=== PATIENT | male | born 1960 | race Caucasian/White ===

== ENCOUNTER 2019-03-01 05:52 | Inpatient (IN) | payer MEDICARE ==
[2019-03-01] VITALS (10 sets, daily range): BP systolic 122–147; BP diastolic 66–106
[~2019-03-01] VITALS: Ht 172.7 cm; Wt 98.0 kg
[~2019-03-01 05:52] MED LIST: CBD OIL PO; CLON2TAB9 PO; CYCL10TA2 PO; FERR325T14 PO; MORP-16 PO; PANT40TA77 PO; SUCR1TAB PO
[2019-03-01] MEDS ORDERED: BUPIVACAINE-EPI 0.5%-1:200000 MPF 30 ML VIAL. INJ ONE (06:00)
[2019-03-01] MEDS ORDERED: SCOPOLAMINE 1.5MG PATCH. TD ONE (06:30)
[2019-03-01] MEDS ORDERED: MORPHINE SULFATE 2 MG/ML VIAL. IV PRN (07:00)
[2019-03-01] MEDS ORDERED: PROCHLORPERAZINE 10 MG/2 ML VIAL. IV PRN (07:00)
[2019-03-01] MEDS ORDERED: ONDANSETRON PF 4 MG/2 ML VIAL. IV PRN ×2 (07:00→11:30)
[2019-03-01] MEDS ORDERED: IV RINGERS,LACTATED 1000ML 1,000 ML IV SCH (07:00)
[2019-03-01] MEDS ORDERED: LIDOCAINE 1% PF 2 ML VIAL. ID PRN (07:00)
[2019-03-01] MEDS ORDERED: fentaNYL PF VIAL 100 MCG/2 ML VIAL IV PRN (07:00)
[2019-03-01] MEDS ORDERED: SUCCINYLCHOLINE 200 MG/10 ML VIAL. ONE (07:04)
[2019-03-01] MEDS ORDERED: ROCURONIUM 50 MG/5 ML VIAL. ONE ×2 (07:04→09:15)
[2019-03-01] MEDS ORDERED: PROPOFOL 20 ML IV ONE (07:06)
[2019-03-01] MEDS ORDERED: LIDOCAINE 2% PF 5 ML VIAL. ONE (07:06)
[2019-03-01] MEDS ORDERED: ONDANSETRON PF 4 MG/2 ML VIAL. ONE ×2 (07:07)
[2019-03-01] MEDS ORDERED: SURGICEL HEMOSTAT 4X8 EACH. ONE ×2 (07:09)
[2019-03-01] MEDS ORDERED: DEXAMETHASONE SOD PHOS 20 MG/5 ML VIAL. ONE (07:10)
[2019-03-01] MEDS ORDERED: fentaNYL PF VIAL 250 MCG/5 ML VIAL ONE (07:24)
[2019-03-01] MEDS ORDERED: MIDAZOLAM HCL/PF 2 MG/2 ML VIAL. ONE (07:24)
[2019-03-01] MEDS ORDERED: ceFAZolin 2GM PREMIX 2 GM/50 ML BAG IV ONE (08:00)
[2019-03-01] MEDS ORDERED: BUPIVACAINE MPF 0.5% 30 ML VIAL. ONE (08:11)
[2019-03-01] MEDS ORDERED: PHENYLEPHRINE in 0.9% NACL PF 1 MG/10 ML SYRINGE. IV ONE (08:55)
[2019-03-01] MEDS ORDERED: SCOPOLAMINE 1.5MG PATCH. TD SCH (09:00)
[2019-03-01] MEDS ORDERED: GLYCOPYRROLATE 1 MG/5 ML VIAL. ONE (10:53)
[2019-03-01] MEDS ORDERED: NEOSTIGMINE METHYLSULFATE 5 MG/5 ML SYRINGE. ONE (10:53)
[2019-03-01] MEDS ORDERED: SEVOFLURANE > 120 MINUTES. IH ONE (11:17)
[2019-03-01] MEDS ORDERED: IV NORMAL SALINE 1000ML BAG 1,000 ML IV SCH (11:18)
--- NOTE | 2019-03-01 11:18 | PDOC4 ---
Operative Note Operative Note Operative Note Preoperative Diagnosis: Large hiatal hernia with gastroesophageal reflux disease Postoperative Diagnosis: Same Procedure: Laparoscopic repair of large hiatal hernia with Elias fundoplication Surgeon: Erwin Stiles.: Dr. Contreras Anesthesia: Gen. Estimated Blood Loss: 25 mL Specimen: Hernia sac to pathology Drains: None Complications: None Indications: The patient is a 58-year-old male who is referred following a GI evaluation which identified a very large hiatal hernia with much of the stomach in the chest. He was referred for surgical repair. The risks of surgery were discussed which include bleeding, infection, recurrent herniation, gastric or esophageal perforation, visceral injury, recurrent reflux, gas bloat syndrome, dysphasia, potential need for additional surgeries or procedures. He understands and would like to proceed. Description: The patient was taken to the operating room and placed supine on the operating table. General anesthesia was performed. The patient was then placed in lithotomy. The abdomen was prepped with ChloraPrep and draped in a standard surgical fashion. A small incision was made superior to and to the patient's left of the umbilicus through which a visualized 5 mm trocar was inserted. A pneumoperitoneum was then created and the laparoscope was introduced. In the right lateral abdomen a 12 mm trocar was inserted through which a soft fan retractor was used to elevate the left lobe of the liver. In the right upper quadrant a 5 mm trocar was inserted. In the left upper quadrant an 11 mm trocar was inserted while in the left lateral abdomen a 5 mm trocar was inserted. Attention was then directed to the diaphragmatic hiatus. As expected there was a large hiatal hernia defect with virtually much of the stomach present in the chest. A large amount of stomach and omentum was pulled out of the chest and able to be reduced. We then began mobilizing the entire hernia sac within the mediastinum. We started this on the right side and began freeing up the sac from the right syd. The Harmonic scalpel assisted for much of this dissection. We continued mobilizing the sac superiorly well into the mediastinum. We continued this dissection anteriorly freeing up the sac and its attachments in this location. The dissection then continued along the left syd and the sac and attachments were mobilized here as well. Due to the large size and redundancy of the sac considerable time was required in freeing this out of the mediastinum. Portions of the redundant sac were also fully excised and sent off to pathology as a specimen. The gastrocolic omentum was then opened with the Harmonic scalpel in the upper portion of the greater curvature. We the n freed up the upper part of the greater curvature and fundus using the harmonic scalpel. Large blood vessels were doubly clipped and divided. The dissection continued all the way back up to the left syd and any remaining splenic attachments were also mobilized. At this point the esophagus was readily visualized and we were able to free up the area around his gastroesophageal junction. A [place] drain was then placed around the esophagus at the GE junction and clips were applied holding the [place] in place. With retraction on the Avel we were able to continue freeing up any remaining sac attachments particularly in the posterior location. To assist with this in other 5 mm port was placed in the abdomen which aided in traction and visualization. At this point the GE junction was well within the abdominal cavity. The left and right syd were then reapproximated with interrupted 2-0 silk sutures using the Endo Stitch device. Stitches were applied both anteriorly and posteriorly allowing for closure of the hernia defect. We elected to reinforce the closure with a Phasix ST mesh patch. The mesh was then introduced and laid up against the diaphragm and around the esophagus. Initial fixation sutures were placed at the superior corners of the mesh using 2-0 silk. The entire mesh was then fixed to the diaphragm using the Tisseel fibrin glue. The fundus was then wrapped around in a 360� fashion creating the fundoplication. A shoeshine maneuver was used to ensure no twists or kinks. 2 initial sutures were placed securing the fundic lips together which included a portion of the anterior esophagus near the GE junction. An additional suture was then placed inferiorly completing the fundoplication. At this point hemostasis was good, the hernia was well repaired with good coverage from the mesh, and the fundoplication was intact with a nice orientation. The 11 and 12 mm trochars were then removed and the fascia closed with 0 Vicryl using an Endo Close. The remaining ports were removed and the pneumoperitoneum was relieved. Skin at all incisions was closed with 4-0 Monocryl. Steri-Strips and dressings were applied. The patient tolerated the procedure well. SHANNAN NYE MD Mar 01, 2019 11:18
[2019-03-01] MEDS ORDERED: 0.9 % SODIUM CHLORIDE 10 ML DISP.SYRIN. IV PRN (11:30)
[2019-03-01] MEDS ORDERED: HYDROmorphone 2 MG/ML VIAL IV PRN (11:30)
[2019-03-01] MEDS ORDERED: NALOXONE 0.4 MG/ML VIAL. IV PRN (11:30)
[2019-03-01] MEDS: fentaNYL PF VIAL 100 MCG/2 ML VIAL IV PRN ×5 (11:46→13:44)
[2019-03-01] MEDS: HYDROmorphone 2 MG/ML VIAL IV PRN ×7 (11:48→21:23)
[2019-03-01] MEDS: IV 1/2 NORMAL SALINE 1,000 ML IV SCH ×2 (13:13→23:24)
[2019-03-01] MEDS: MORPHINE ER 30 MG TABLET.ER PO SCH (18:01)
[2019-03-01] MEDS ORDERED: SUCRALFATE 1 GM TABLET. PO SCH (21:00)
[2019-03-01] MEDS ORDERED: PANTOPRAZOLE 40 MG TABLET.DR. PO SCH (21:00)
[2019-03-02 03:00] VITALS: BP 154/102
[2019-03-02 03:43] VITALS: BP 152/95
--- NOTE | 2019-03-02 03:46 | NUR ---
Medication Administration: RN administered the 2100 dose of Carafate at 0300 due to patient stating he takes it at that time at home.
[2019-03-02] MEDS: HYDROmorphone 2 MG/ML VIAL IV PRN ×2 (04:27→08:58)
[2019-03-02] MEDS: MORPHINE ER 30 MG TABLET.ER PO SCH (06:27)
[2019-03-02] MEDS ORDERED: FERROUS SULFATE 325 MG TABLET. PO SCH ×2 (06:45→09:00)
[2019-03-02 07:00] VITALS: BP 146/95
[2019-03-02] MEDS: IV 1/2 NORMAL SALINE 1,000 ML IV SCH (07:18)
[2019-03-02 07:32] LABS: CALCIUM 8.9 mg/dL (8.5-10.1); CREATININE 0.9 mg/dL (0.7-1.3); GFR 86.7
[2019-03-02] MEDS ORDERED: PANTOPRAZOLE 40 MG TABLET.DR. PO SCH ×2 (09:00)
[2019-03-02 11:00] VITALS: BP 142/89
--- NOTE | 2019-03-02 11:14 | PDOC ---
SURGICAL PROGRESS NOTE Subjective Patient doing quite well tolerating his by mouth meds does complain of some abdominal soreness Vital Signs Vital Signs Date Time Temp Pulse Resp B/P (MAP) Pulse Ox O2 Delivery O2 Flow Rate FiO2 03/02/19 09:59 18 Room Air 03/02/19 07:00 98.5 95 146/95 (112) 92 98.5 03/02/19 06:31 2.0 I&O Intake and Output 03/02/19 06:59 Intake Total 2650 ml Output Total 1725 ml Balance 925 ml Intake IV Total 2650 ml Output Urine Total 1700 ml Estimated Blood Loss 25 ml PATIENT HAS A RHOADES: No General: Alert, Oriented X3, Cooperative, mild distress Abdomen: Normal bowel sounds, Soft, Other (mild incisional tenderness wounds clean dry and intact) Labs Laboratory Tests Test 03/02/19 05:50 Sodium Level 143 mmol/L (136-145) Potassium Level 4.0 mmol/L (3.5-5.1) Chloride Level 103 mmol/L (98-107) Carbon Dioxide Level 31 mmol/L (21-32) Anion Gap 9 (6-14) Blood Urea Nitrogen 9 mg/dL (8-26) Creatinine 0.9 mg/dL (0.7-1.3) Estimated GFR (Cockcroft-Gault) 86.7 Glucose Level 89 mg/dL (70-99) Calcium Level 8.9 mg/dL (8.5-10.1) Laboratory Tests Test 03/02/19 05:50 Sodium Level 143 mmol/L (136-145) Potassium Level 4.0 mmol/L (3.5-5.1) Chloride Level 103 mmol/L (98-107) Carbon Dioxide Level 31 mmol/L (21-32) Anion Gap 9 (6-14) Blood Urea Nitrogen 9 mg/dL (8-26) Creatinine 0.9 mg/dL (0.7-1.3) Estimated GFR (Cockcroft-Gault) 86.7 Glucose Level 89 mg/dL (70-99) Calcium Level 8.9 mg/dL (8.5-10.1) Assessment/Plan That is post-Elias fundoplication laparoscopic doing well will advance diet changed to by mouth meds LUPIS ALANIZ MD Mar 02, 2019 11:14
[2019-03-02] MEDS ORDERED: oxyCODONE/APAP 5/325 1 TAB TABLET PO PRN (11:15)
[2019-03-02] MEDS: oxyCODONE/APAP 5/325 1 TAB TABLET PO PRN ×2 (11:42→15:46)
--- NOTE | 2019-03-02 12:22 | NUR ---
SS following for discharge planning. SS reviewed pt chart. Pt is from home with spouse and is currently on room air. No discharge needs noted at this time. SS will continue to follow for discharge planning.
--- NOTE | 2019-03-02 12:35 | DISCH ---
DISCHARGE INSTRUCTIONS Condition on Discharge Condition on Discharge: Stable Activity After Discharge Activity Instructions for Disc: Activity as tolerated Other activity instructions: no lifting more than 20 pounds for 4 weeks Diet after Discharge Diet after Discharge: Level III Dysph, Chopped Wound Incision Care Other wound/incision instructi: May shower in 24 hours Contacting the after DC Call your doctor for: If your condition worsens Follow-Up Follow up with: Dr. Hood in 2 weeks LUPIS ALANIZ MD Mar 02, 2019 12:35
[2019-03-02 15:00] VITALS: BP 135/89
[2019-03-02] MEDS ORDERED: SUCRALFATE 1 GM TABLET. PO SCH (15:00)
--- NOTE | 2019-03-02 16:19 | NUR ---
Discharge instructions and belongings reviewed with patient, verbalized understanding. Patient was escorted out via wheelchair by Erendira DESAI accompanied by his .
--- NOTE | 2019-03-05 14:07 | PATHOLOGY ---
[facility] Accession Number: [id number] . 01 Material submitted: . hernia - HIATAL HERNIA SAC . 01 Clinical history: . Hiatal hernia with gastroesophageal reflux . 02 Diagnosis: Segments of focal mesothelial-lined fibromembranous and fibroadipose tissue, laparoscopic hiatal hernia repair: - Hernia sac. - Three lymph nodes identified showing no significant pathologic abnormalities. (JPM:melanie; 03/05/2019) QMS/03/05/2019 . 02 Electronically signed: . Rodrigo Rosario MD, Pathologist NPI- [id number] . 01 Gross description: . Received in formalin labeled "Brown, Jey, hiatal hernia sac," are 2 segments of pink-purple, membranous tissue with attached yellow adipose tissue measuring 8.0 x 4.0 x 1.1 and 8.8 x 3.6 x 0.8 cm. The tissue submitted representatively in cassette A1. (TSD; 03/01/2019) TOB/TOB . 02 Pathologist provided ICD-10: K44.9 . 02 CPT . 205649 Specimen Comment: A courtesy copy of this report has been sent to Specimen Comment: [phone], . Specimen Comment: Report sent to DR NYE / DR ÁLVAREZ Performed at: 01 [facility] [address], [place], [place] [id number] MD Darin Castillo MD Phone: [phone] Performed at: 02 [facility] [address] [place], [place] [id number] MD Rodrigo Rosario MD Phone: [phone]
== END 2019-03-02 16:24 | disposition home or self-care (01) | DRG 328 ==
LOC: SURG 05:52 → 4 NORTH 11:00
PROVIDERS: ADMIT Surgery; ATTEND Surgery
PROC: 0BUT4JZ Supplement Diaphragm with Synthetic Substitute, Percutaneous Endoscopic Approach (ICD-10-PCS; 2019-03-01)
PROC: 0DV44ZZ Restriction of Esophagogastric Junction, Percutaneous Endoscopic Approach (ICD-10-PCS; principal; 2019-03-01 07:30)
DX: K21.9 Gastro-esophageal reflux disease without esophagitis (principal); K44.9 Diaphragmatic hernia without obstruction or gangrene
CPT/HCPCS: 36415; 80048; A7015; C1781; J0330; J0696; J0780; J1100; J1170; J2001; J2250; J2370; J2405; J2704; J2710; J3010; J3490; J7030; J7120; G0378

== ENCOUNTER → 2019-08-06 | Outpatient (CLI) | payer BC ==
[2019-08-06 09:43] LABS: BASO # 0.1 x10^3/uL (0.0-0.2); BASO % 1 % (0-3); EOS # 0.1 x10^3/uL (0.0-0.7); EOS % 2 % (0-3); HEMATOCRIT 52.6 % (39.0-53.0); HEMOGLOBIN 17.8 g/dL (13.0-17.5); LYMPH # 1.8 x10^3/uL (1.0-4.8); LYMPH % 25 % (24-48); MEAN CORPUSCULAR HEMOGLOBIN 30 pg (25-35); MEAN CORPUSCULAR HGB CONC 34 g/dL (31-37); MEAN CORPUSCULAR VOLUME 89 fL (79-100); MONO # 0.8 x10^3/uL (0.0-1.1); MONO % 11 % (0-9); NEUT # 4.4 x10^3/uL (1.8-7.7); NEUT % 61 % (31-73); PLATELET COUNT 240 x10^3/uL (140-400); RED CELL DISTRIBUTION WIDTH 13.8 % (11.5-14.5); WHITE BLOOD COUNT 7.2 x10^3/uL (4.0-11.0)
[2019-08-06 10:02] LABS: PROTHROMBIN TIME PATIENT 12.7 SEC (11.7-14.0)
[2019-08-06 10:19] LABS: ALBUMIN 3.7 g/dL (3.4-5.0); CALCIUM 9.2 mg/dL (8.5-10.1); CREATININE 0.9 mg/dL (0.7-1.3); GFR 86.7; POTASSIUM 4.3 mmol/L (3.5-5.1)
--- NOTE | 2019-08-06 13:03 | EKG ---
[facility] [address] [place] [address] Test Date: 2019-08-06 Test Time: 12:56:14 Pat Name: TYLER JENSEN Department: Room: Gender: M Manager [employer] Management: SABINE : 1960 Requested By: CHASTITY WALTERS Order Number: [id number] Reading MD: Measurements Intervals [place] Rate: 90 P: 30 DE: 146 QRS: -18 QRSD: 86 T: 14 QT: 364 QTc: 449 Interpretive Statements SINUS RHYTHM LEFTWARD AXIS OTHERWISE NORMAL ECG RI6.02 No previous ECG available for comparison
--- NOTE | 2019-08-06 15:52 | RAD ---
AP and Lateral Views of the Chest 08/06/2019 9:04 AM Indication: Preoperative Comparison: None Findings: No pneumothorax or pleural effusion is seen. Small calcified granuloma noted in the left upper lung. Heart size is within normal limits. Mild interstitial coarsening is seen partially related to hypoventilatory effect. No evidence of acute osseous abnormality is identified. Degenerative changes of the thoracic spine noted. IMPRESSION: 1 .No evidence of acute cardiopulmonary process 2. Mild nonspecific interstitial coarsening. Electronically signed by: Angelo Rosenberg MD (08/06/2019 3:09 PM) [id number]
[2019-08-06 23:08] LABS: HEMOGLOBIN A1C 5.6 % (4.8-5.6)
== END | disposition home or self-care (01) ==
LOC: SURGPAT 13:11
PROVIDERS: ATTEND Orthopaedic Surgery
DX: Z01.818 Encounter for other preprocedural examination (principal); M17.11 Unilateral primary osteoarthritis, right knee; J84.10 Pulmonary fibrosis, unspecified; Z88.8 Allergy status to other drugs, medicaments and biological substances
CPT/HCPCS: 36415; 71046; 80048; 82040; 82306; 83036; 85025; 85610; 85651; 85730; 87641; 93005

== ENCOUNTER 2019-09-02 12:25 | Emergency (ER) | payer BC ==
[~2019-09-02] VITALS: Ht 170.2 cm; Wt 97.7 kg
[~2019-09-02 12:25] MED LIST changes: +ASPI325T11 PO; +OXYC1TAB15 PO
--- NOTE | 2019-09-02 12:57 | PHYS DOC ---
Past Medical History Past Medical History: Arthritis, GERD Additional Past Medical Histor: chroinc pain Additional Past Surgical Histo: Knee replacement Smoking Status: Former Smoker Adult General Chief Complaint Chief Complaint: POST-OP PROBLEM HPI HPI Patient is a 58-year-old male who presents to the emergency department for evaluation. He underwent a right total knee replacement this past Tuesday, and states he has had some increasing swelling, and some mild pain increasing in the area of his knee. He has had a low-grade temperature at home, although he is afebrile here. They contacted the on-call orthopedic physician who was concerned that the patient might be developing a DVT and sent him to the emergen cy department. The patient is on aspirin prophylaxis. He has not had any nausea, vomiting, chest pain, or shortness of breath. There are no alleviating or exacerbating factors to his symptoms otherwise. He is able to flex and extend his knee. Relevant notes from his recent hospital stay have been reviewed. Review of Systems Review of Systems Constitutional: Denies lethargy or chills [] Eyes: Denies change in visual acuity, redness, or eye pain [] HENT: Denies nasal congestion or sore throat [] Respiratory: Denies cough or shortness of breath [] Cardiovascular: The patient denies any shortness of breath, chest pain, palpitations, or orthopnea [] GI: Denies abdominal pain, nausea, vomiting, bloody stools or diarrhea [] : Denies dysuria or hematuria [] Musculoskeletal: Denies back pain or joint pain, other than pain in his right knee [] Integument: Denies rash or skin lesions, other than some erythema in the area of his right knee wound, where there is a dressing in place. [] Neurologic: Denies headache, focal weakness or sensory changes [] Endocrine: Denies polyuria or polydipsia [] All other systems were reviewed and found to be within normal limits, except as documented in this note. Current Medications Current Medications Current Medications Medications (Trade) Dose Ordered Sig/Shani Start Time Stop Time Status Last Admin Dose Admin Morphine Sulfate (Ms Contin) 15 mg BID 09/02/19 15:15 09/02/19 15:08 15 MG Oxycodone/ Acetaminophen (Percocet 5/325) 2 tab 1X ONCE 09/02/19 14:30 09/02/19 14:41 DC 09/02/19 14:54 2 TAB Allergies Allergies Allergies Coded Allergies Type Severity Reaction Last Updated Verified morphine Adverse Reaction Mild MORPHINE IV ONLY - VOMITING (PO OK) 08/28/19 Yes Physical Exam Physical Exam PHYSICAL EXAM: CONSTITUTIONAL: Well developed, well nourished HEAD: normocephalic, atraumatic EENT: PERRL, EOMI. Conjunctivae normal color, sclerae non-icteric; moist mucous membranes. NECK: Supple, non-tender; no meningismus. LUNGS: Lungs CTA, breathing even and unlabored. Normal air movement. HEART: Regular rate and rhythm, no murmur CHEST: No deformity; non-tender ABDOMEN: The abdomen is soft, and non-tender, no masses or bruits. EXTREM: Normal ROM; no deformity, no calf tenderness. Normal pulses palpable in all extremities. There is no pedal edema. There is mild edema noted to the right lower extremity, consistent with recent postop TKA, without significant or unexpected edema. There is a focal area of hyperemia, with some mild warmth and early blistering on the medial aspect of the right knee, which appears more consistent with an allergic reaction to the skin, as opposed to a true developin g cellulitis. There is mild diffuse tenderness to palpation in the area of the right knee, without significant restriction in range of motion, or pain. The remainder the extremities are unremarkable. Distal PMS is normal. SKIN: No rash; no diaphoresis NEURO: Alert; normal speech and cognition; CN's grossly intact; strength grossly intact without focal deficit. BACK: No CVA TTP. Current Patient Data Vital Signs Vital Signs Date Time Temp Pulse Resp B/P (MAP) Pulse Ox O2 Delivery O2 Flow Rate FiO2 09/02/19 12:48 98.4 103 20 134/84 (101) 95 Room Air 98.4 Lab Values Laboratory Tests Test 09/02/19 12:50 White Blood Count 10.0 x10^3/uL (4.0-11.0) Red Blood Count 4.91 x10^6/uL (4.30-5.70) Hemoglobin 15.0 g/dL (13.0-17.5) Hematocrit 43.4 % (39.0-53.0) Mean Corpuscular Volume 88 fL (79-100) Mean Corpuscular Hemoglobin 31 pg (25-35) Mean Corpuscular Hemoglobin Concent 35 g/dL (31-37) Red Cell Distribution Width 13.5 % (11.5-14.5) Platelet Count 298 x10^3/uL (140-400) Neutrophils (%) (Auto) 65 % (31-73) Lymphocytes (%) (Auto) 22 % (24-48) L Monocytes (%) (Auto) 11 % (0-9) H Eosinophils (%) (Auto) 2 % (0-3) Basophils (%) (Auto) 1 % (0-3) Neutrophils # (Auto) 6.4 x10^3/uL (1.8-7.7) Lymphocytes # (Auto) 2.2 x10^3/uL (1.0-4.8) Monocytes # (Auto) 1.1 x10^3/uL (0.0-1.1) Eosinophils # (Auto) 0.2 x10^3/uL (0.0-0.7) Basophils # (Auto) 0.1 x10^3/uL (0.0-0.2) Erythrocyte Sedimentation Rate 35 (0-15) H Sodium Level 140 mmol/L (136-145) Potassium Level 3.9 mmol/L (3.5-5.1) Chloride Level 102 mmol/L (98-107) Carbon Dioxide Level 26 mmol/L (21-32) Anion Gap 12 (6-14) Blood Urea Nitrogen 15 mg/dL (8-26) Creatinine 1.0 mg/dL (0.7-1.3) Estimated GFR (Cockcroft-Gault) 76.7 Glucose Level 134 mg/dL (70-99) H Lactic Acid Level 1.6 mmol/L (0.4-2.0) Calcium Level 8.8 mg/dL (8.5-10.1) C-Reactive Protein, Quantitative 147.8 mg/L (0-3.3) H Laboratory Tests 09/02/19 12:50 Laboratory Tests 09/02/19 12:50 EKG EKG [] Radiology/Procedures Radiology/Procedures PROCEDURE: VENOUS LOWER EXTREMITY RIGHT Right Leg Venous Doppler Ultrasound, 09/02/2019 Indication: Postop pain and swelling status post total knee arthroplasty on 08/28/2019 Comparison: None available Procedure: Real-time grayscale, color flow color duplex Doppler and spectral analysis are obtained with and without compression in the area of the common femoral vein, superficial femoral vein - femoral vein junction, main femoral vein (superficial femoral vein) and popliteal vein. Veins of the proximal calf are also imaged. Findings: There is normal duplex flow, color flow and compressibility of all visualized vein segments. No evidence of deep venous thrombus is present. Mildly enlarged 3.1 cm right groin lymph node, perhaps reactive. Diffuse soft tissue swelling is seen in the right elbow findings and knee area Impression: No convincing evidence of DVT noted. Soft tissue swelling is identified. [] Course & Med Decision Making Course & Med Decision Making Pertinent Labs and Imaging studies reviewed. (See chart for details) [] 3:20 PM: Patient remains stable. I discussed test results, the need for close follow-up, and return precautions. I had earlier spoken with Dr. Najera, we did not want the patient placed on antibiotics at this time, without convincing evidence of infection, which is not present, and stressed importance of close outpatient follow-up in the office. Return precautions were discussed in detail. Dragon Disclaimer Dragon Disclaimer This electronic medical record was generated, in whole or in part, using a voice recognition dictation system. Departure Departure Impression: Primary Impression: Postoperative pain of knee Disposition: 01 HOME, SELF-CARE Condition: STABLE Referrals: NILTON ÁLVAREZ (PCP) Patient Instructions: Pain Relief Preoperatively and Postoperatively, Total Knee Replacement, Care After Additional Instructions: Follow-up with your orthopedic surgeon in 1 to 2 days for a wound recheck. Tylenol as needed for pain. If increasing pain develops, return to medical care for further evaluation. RIKKI ALTAMIRANO MD Sep 02, 2019 12:57
[2019-09-02 13:03] LABS: BASO # 0.1 x10^3/uL (0.0-0.2); BASO % 1 % (0-3); EOS # 0.2 x10^3/uL (0.0-0.7); EOS % 2 % (0-3); HEMATOCRIT 43.4 % (39.0-53.0); LYMPH # 2.2 x10^3/uL (1.0-4.8); LYMPH % 22 % (24-48); MEAN CORPUSCULAR HEMOGLOBIN 31 pg (25-35); MEAN CORPUSCULAR HGB CONC 35 g/dL (31-37); MEAN CORPUSCULAR VOLUME 88 fL (79-100); MONO # 1.1 x10^3/uL (0.0-1.1); MONO % 11 % (0-9); NEUT # 6.4 x10^3/uL (1.8-7.7); NEUT % 65 % (31-73); PLATELET COUNT 298 x10^3/uL (140-400); RED BLOOD COUNT 4.91 x10^6/uL (4.30-5.70); RED CELL DISTRIBUTION WIDTH 13.5 % (11.5-14.5)
[2019-09-02 13:14] LABS: CALCIUM 8.8 mg/dL (8.5-10.1); GFR 76.7; POTASSIUM 3.9 mmol/L (3.5-5.1)
[2019-09-02 13:15] LABS: C-REACTIVE PROTEIN 147.8 mg/L (0-3.3)
[2019-09-02] MEDS ORDERED: oxyCODONE/APAP 5/325 1 TAB TABLET PO ONE (14:30)
[2019-09-02 15:06] VITALS: BP 121/80
[2019-09-02] MEDS ORDERED: MORPHINE ER 15 MG TABLET.ER PO SCH (15:15)
--- NOTE | 2019-09-02 15:20 | RAD ---
Right Leg Venous Doppler Ultrasound, 09/02/2019 Indication: Postop pain and swelling status post total knee arthroplasty on 08/28/2019 Comparison: None available Procedure: Real-time grayscale, color flow color duplex Doppler and spectral analysis are obtained with and without compression in the area of the common femoral vein, superficial femoral vein - femoral vein junction, main femoral vein (superficial femoral vein) and popliteal vein. Veins of the proximal calf are also imaged. Findings: There is normal duplex flow, color flow and compressibility of all visualized vein segments. No evidence of deep venous thrombus is present. Mildly enlarged 3.1 cm right groin lymph node, perhaps reactive. Diffuse soft tissue swelling is seen in the right elbow findings and knee area Impression: No convincing evidence of DVT noted. Soft tissue swelling is identified. Electronically signed by: Saniya Manning MD (09/02/2019 3:17 PM) [id number]
== END 2019-09-02 15:51 | disposition home or self-care (01) ==
LOC: ER 12:25
DX: T84.84XA Pain due to internal orthopedic prosthetic devices, implants and grafts, initial encounter (principal); G89.18 Other acute postprocedural pain; M25.561 Pain in right knee; R59.9 Enlarged lymph nodes, unspecified; Z96.651 Presence of right artificial knee joint; K21.9 Gastro-esophageal reflux disease without esophagitis; Z87.891 Personal history of nicotine dependence; Z88.5 Allergy status to narcotic agent; Y92.89 Other specified places as the place of occurrence of the external cause
CPT/HCPCS: 36415; 80048; 83605; 85025; 85651; 86140; 87040; 93971; 99283; 99284

== ENCOUNTER 2019-09-11 05:56 | Observation (INO) | payer BC ==
[2019-09-11] VITALS (10 sets, daily range): BP systolic 100–128; BP diastolic 64–87
[~2019-09-11] VITALS: Ht 172.7 cm; Wt 95.3 kg
[~2019-09-11 05:56] MED LIST changes: +CELE200C PO; +CEPH-264 PO; +CHOL500062 PO
[2019-09-11] MEDS ORDERED: ACETAMINOPHEN 500 MG TABLET PO PRN (06:00)
[2019-09-11] MEDS ORDERED: PROCHLORPERAZINE 10 MG/2 ML VIAL. IV PRN (07:00)
[2019-09-11] MEDS ORDERED: MORPHINE SULFATE 2 MG/ML VIAL. IV PRN (07:00)
[2019-09-11] MEDS ORDERED: IV RINGERS,LACTATED 1000ML 1,000 ML IV SCH (07:00)
[2019-09-11] MEDS ORDERED: fentaNYL PF VIAL 100 MCG/2 ML VIAL IV PRN (07:00)
[2019-09-11] MEDS ORDERED: ONDANSETRON PF 4 MG/2 ML VIAL. IV PRN (07:00)
[2019-09-11 07:10] LABS: BASO # 0.2 x10^3/uL (0.0-0.2); BASO % 1 % (0-3); EOS # 0.2 x10^3/uL (0.0-0.7); EOS % 2 % (0-3); HEMATOCRIT 40.2 % (39.0-53.0); HEMOGLOBIN 13.6 g/dL (13.0-17.5); LYMPH # 1.9 x10^3/uL (1.0-4.8); LYMPH % 16 % (24-48); MEAN CORPUSCULAR HEMOGLOBIN 30 pg (25-35); MEAN CORPUSCULAR HGB CONC 34 g/dL (31-37); MEAN CORPUSCULAR VOLUME 88 fL (79-100); MONO % 8 % (0-9); NEUT # 8.7 x10^3/uL (1.8-7.7); NEUT % 73 % (31-73); PLATELET COUNT 472 x10^3/uL (140-400); RED BLOOD COUNT 4.56 x10^6/uL (4.30-5.70); RED CELL DISTRIBUTION WIDTH 13.1 % (11.5-14.5)
[2019-09-11 07:20] LABS: CALCIUM 9.2 mg/dL (8.5-10.1); GFR 76.7; POTASSIUM 3.6 mmol/L (3.5-5.1)
[2019-09-11] MEDS ORDERED: DEXAMETHASONE SOD PHOS 4 MG/ML VIAL ONE (07:21)
[2019-09-11] MEDS ORDERED: LIDOCAINE 2% PF 5 ML VIAL. ONE (07:21)
[2019-09-11] MEDS ORDERED: ONDANSETRON PF 4 MG/2 ML VIAL. ONE (07:21)
[2019-09-11] MEDS ORDERED: fentaNYL PF VIAL 100 MCG/2 ML VIAL ONE ×2 (07:21→09:38)
[2019-09-11] MEDS ORDERED: KETAMINE HCL IN NACL, ISO-OSM 50 MG/5 ML SYRINGE ONE (07:21)
[2019-09-11] MEDS ORDERED: FAMOTIDINE 20 MG/2 ML VIAL ONE (07:21)
[2019-09-11] MEDS ORDERED: MIDAZOLAM HCL/PF 2 MG/2 ML VIAL. ONE (07:21)
[2019-09-11] MEDS ORDERED: PROPOFOL 20 ML IV ONE (07:21)
[2019-09-11] MEDS ORDERED: MORPHINE SULFATE 5 MG, KETOROLAC 30MG VIAL 30 MG, ROPIVacaine 0.5% PF 60 ML, EPINEPHrin... INT ART ONE ×5 (07:30)
--- NOTE | 2019-09-11 07:52 | PDOC1 ---
History and Physical Date of Admission Date of Admission DATE: 09/11/19 TIME: 07:46 Identification/Chief Complaint Chief Complaint Right total knee swelling Source Source: Chart review, Patient History of Present Illness History of Present Illness This 58-year-old man had right total knee arthroplasty 2 weeks ago today. He presented to the office last week with increased swelling, and also had some perioperative skin blistering. On , I did knee joint synovial fluid aspiration and sent the fluid for Synovasure testing. The white blood cell count and the differential in the synovial fluid show elevated results, and there are alpha defensin proteins, all of which may be an indicator of infection but do not confirm infection. DNA panel for common bacteria was negative and cultures remain negative. Out of an abundance of caution I recommended irrigation and debridement with polyethylene exchange. He agrees. Past Medical History GI: GERD, Peptic Ulcer disease, Other Past Surgical History Past Surgical History: Total knee replacement Family History Family History: Cancer, Heart Disease Social History ALCOHOL: none Current Medications Current Medications Current Medications Ondansetron HCl (Zofran) 4 mg PRN Q6HRS PRN IV NAUSEA/VOMITING; Start 09/11/19 at 07:00; Stop 09/12/19 at 06:59 Fentanyl Citrate (Fentanyl 2ml Vial) 25 mcg PRN Q5MIN PRN IV MILD PAIN 1-3; Start 09/11/19 at 07:00; Stop 09/12/19 at 06:59 Fentanyl Citrate (Fentanyl 2ml Vial) 50 mcg PRN Q5MIN PRN IV MODERATE TO SEVERE PAIN; Start 09/11/19 at 07:00; Stop 09/12/19 at 06:59 Morphine Sulfate (Morphine Sulfate) 1 mg PRN Q10MIN PRN IV SEVERE PAIN 7-10; Start 09/11/19 at 07:00; Stop 09/12/19 at 06:59 Ringer's Solution 1,000 ml @ 30 mls/hr Q24H IV Last administered on 09/11/19at 07:08; Start 09/11/19 at 07:00; Stop 09/11/19 at 18:59 Hydromorphone HCl (Dilaudid) 0.5 mg PRN Q10MIN PRN IV SEV PAIN, Second choice; Start 09/11/19 at 07:00; Stop 09/12/19 at 06:59 Prochlorperazine Edisylate (Compazine) 5 mg PACU PRN PRN IV NAUSEA, MRX1; Start 09/11/19 at 07:00; Stop 09/12/19 at 06:59 Cefazolin Sodium/ Dextrose 50 ml @ 100 mls/hr 1X PREOP PRN IV PRIOR TO PROCEDURE; Start 09/11/19 at 06:00; Stop 09/11/19 at 18:00 Acetaminophen (Tylenol) 1,000 mg 1X PREOP PRN PO PRIOR TO PROCEDURE Last administered on 09/11/19at 07:08; Start 09/11/19 at 06:00; Stop 09/11/19 at 18:00 Propofol 20 ml @ As Directed STK-MED ONCE IV ; Start 09/11/19 at 07:21; Stop 09/11/19 at 07:21; Status DC Dexamethasone Sodium Phosphate (Decadron) 4 mg STK-MED ONCE .ROUTE ; Start 09/11/19 at 07:21; Stop 09/11/19 at 07:21; Status DC Famotidine (Pepcid Vial) 20 mg STK-MED ONCE .ROUTE ; Start 09/11/19 at 07:21; Stop 09/11/19 at 07:21; Status DC Lidocaine HCl (Lidocaine Pf 2% Vial) 5 ml STK-MED ONCE .ROUTE ; Start 09/11/19 at 07:21; Stop 09/11/19 at 07:21; Status DC Ondansetron HCl (Zofran) 4 mg STK-MED ONCE .ROUTE ; Start 09/11/19 at 07:21; Stop 09/11/19 at 07:21; Status DC Ketamine HCl (Ketamine) 50 mg STK-MED ONCE .ROUTE ; Start 09/11/19 at 07:21; Stop 09/11/19 at 07:21; Status DC Fentanyl Citrate (Fentanyl 2ml Vial) 100 mcg STK-MED ONCE .ROUTE ; Start 09/11/19 at 07:21; Stop 09/11/19 at 07:22; Status DC Midazolam HCl (Versed) 2 mg STK-MED ONCE .ROUTE ; Start 09/11/19 at 07:21; Stop 09/11/19 at 07:22; Status DC Morphine Sulfate 5 mg/Ketorolac Tromethamine 30 mg/Ropivacaine 60 ml/Epinephrine HCl 0.5 mg/Sodium Chloride 100 ml @ 100 mls/hr 1X ONCE INT ART ; Start 09/11/19 at 07:30; Stop 09/11/19 at 08:29 Active Scripts Active Aspirin Ec (Aspirin) 325 Mg Tablet.dr 325 Mg PO BID MDD 2 tablets daily 30 Days Take one tablet by mouth every 12 hrs. Reported Vitamin D3 (Cholecalciferol (Vitamin D3)) 5,000 Unit Tab.rapdis 5,000 Unit PO DAILY Celebrex (Celecoxib) 200 Mg Capsule 200 Mg PO DAILY 30 Days Keflex (Cephalexin) 500 Mg Capsule 500 Mg PO QID Ferrous Sulfate 325 Mg Tablet 1 Tab PO DAILY [Cbd Oil] 1 Cap PO PRN PRN Cyclobenzaprine Hcl 10 Mg Tablet 1 Tab PO QHS Clonazepam 2 Mg Tablet 1 Tab PO QHS Protonix (Pantoprazole Sodium) 40 Mg Tablet.dr 40 Mg PO HS Morphine Sulfate Er (Morphine Sulfate) 30 Mg Tablet.er 15 Mg PO TID Allergies Allergies: Coded Allergies: morphine (Verified Adverse Reaction, Mild, MORPHINE IV ONLY - VOMITING (PO OK), 08/28/19) Physical Exam General: Alert, Cooperative HEENT: Atraumatic Lungs: Normal air movement Heart: RRR Extremities: Other (Active range of motion of the knee is 10 to 90 degrees. There is still slight erythema diffusely. There is a knee effusion. There is no drainage. There are some resolving blisters, some of which involve the skin incision. The calf is soft and nontender. He still has some lateral thigh tenderness which could be related to the suprapatellar pouch, or may just be muscle spasm of the vastus lateralis.) Skin: Other (There are no fluid-filled blisters at this time, they are all ruptured or unroofed, and are dry. These are scattered, but 1 of them involves the incision.) Neuro: Sensation intact Vitals Vitals Vital Signs Date Time Temp Pulse Resp B/P (MAP) Pulse Ox O2 Delivery O2 Flow Rate FiO2 09/11/19 07:01 97.9 104 18 134/84 96 Room Air 97.9 Labs Labs Laboratory Tests Test 09/11/19 07:03 White Blood Count 12.0 x10^3/uL (4.0-11.0) Red Blood Count 4.56 x10^6/uL (4.30-5.70) Hemoglobin 13.6 g/dL (13.0-17.5) Hematocrit 40.2 % (39.0-53.0) Mean Corpuscular Volume 88 fL (79-100) Mean Corpuscular Hemoglobin 30 pg (25-35) Mean Corpuscular Hemoglobin Concent 34 g/dL (31-37) Red Cell Distribution Width 13.1 % (11.5-14.5) Platelet Count 472 x10^3/uL (140-400) Neutrophils (%) (Auto) 73 % (31-73) Lymphocytes (%) (Auto) 16 % (24-48) Monocytes (%) (Auto) 8 % (0-9) Eosinophils (%) (Auto) 2 % (0-3) Basophils (%) (Auto) 1 % (0-3) Neutrophils # (Auto) 8.7 x10^3/uL (1.8-7.7) Lymphocytes # (Auto) 1.9 x10^3/uL (1.0-4.8) Monocytes # (Auto) 1.0 x10^3/uL (0.0-1.1) Eosinophils # (Auto) 0.2 x10^3/uL (0.0-0.7) Basophils # (Auto) 0.2 x10^3/uL (0.0-0.2) Sodium Level 141 mmol/L (136-145) Potassium Level 3.6 mmol/L (3.5-5.1) Chloride Level 103 mmol/L (98-107) Carbon Dioxide Level 27 mmol/L (21-32) Anion Gap 11 (6-14) Blood Urea Nitrogen 18 mg/dL (8-26) Creatinine 1.0 mg/dL (0.7-1.3) Estimated GFR (Cockcroft-Gault) 76.7 Glucose Level 105 mg/dL (70-99) Calcium Level 9.2 mg/dL (8.5-10.1) Laboratory Tests Test 09/11/19 07:03 White Blood Count 12.0 x10^3/uL (4.0-11.0) Red Blood Count 4.56 x10^6/uL (4.30-5.70) Hemoglobin 13.6 g/dL (13.0-17.5) Hematocrit 40.2 % (39.0-53.0) Mean Corpuscular Volume 88 fL (79-100) Mean Corpuscular Hemoglobin 30 pg (25-35) Mean Corpuscular Hemoglobin Concent 34 g/dL (31-37) Red Cell Distribution Width 13.1 % (11.5-14.5) Platelet Count 472 x10^3/uL (140-400) Neutrophils (%) (Auto) 73 % (31-73) Lymphocytes (%) (Auto) 16 % (24-48) Monocytes (%) (Auto) 8 % (0-9) Eosinophils (%) (Auto) 2 % (0-3) Basophils (%) (Auto) 1 % (0-3) Neutrophils # (Auto) 8.7 x10^3/uL (1.8-7.7) Lymphocytes # (Auto) 1.9 x10^3/uL (1.0-4.8) Monocytes # (Auto) 1.0 x10^3/uL (0.0-1.1) Eosinophils # (Auto) 0.2 x10^3/uL (0.0-0.7) Basophils # (Auto) 0.2 x10^3/uL (0.0-0.2) Sodium Level 141 mmol/L (136-145) Potassium Level 3.6 mmol/L (3.5-5.1) Chloride Level 103 mmol/L (98-107) Carbon Dioxide Level 27 mmol/L (21-32) Anion Gap 11 (6-14) Blood Urea Nitrogen 18 mg/dL (8-26) Creatinine 1.0 mg/dL (0.7-1.3) Estimated GFR (Cockcroft-Gault) 76.7 Glucose Level 105 mg/dL (70-99) Calcium Level 9.2 mg/dL (8.5-10.1) VTE Prophylaxis Ordered VTE Prophylaxis Devices: Yes VTE Pharmacological Prophylaxi: Yes Assessment/Plan Assessment/Plan Right knee effusion, after total knee arthroplasty, synovial fluid aspiration is concerning enough to warrant irrigation and debridement and polyethylene exchange. There is no confirmation of infection at this time. I recommended irrigation and debridement in the operating room, with polyethylene exchange to him, and discussed the usual perioperative course, that I usually recommend intravenous antibiotics for 6 weeks regardless of culture results. He stated understanding of the risks benefits and alternatives and desires to proceed. CHASTITY WALTERS MD Sep 11, 2019 07:52
[2019-09-11] MEDS ORDERED: VANCOMYCIN 1 GM VIAL. ONE (08:06)
[2019-09-11 08:35] LABS: C-REACTIVE PROTEIN 67.5 mg/L (0-3.3)
[2019-09-11] MEDS ORDERED: GELATIN SPONGE SIZE 100. ONE (08:38)
[2019-09-11] MEDS ORDERED: TRANEXAMIC ACID 1,000 MG in IV NORMAL SALINE 50ML 50 ML INJ ONE (09:00)
[2019-09-11] MEDS ORDERED: SEVOFLURANE > 120 MINUTES. IH ONE (09:09)
[2019-09-11] MEDS ORDERED: IV NORMAL SALINE 1000ML BAG 1,000 ML IV SCH (09:28)
--- NOTE | 2019-09-11 09:28 | PDOC4 ---
Operative Note Operative Note Date of Procedure: September 11, 2019 Pre-Op Diagnosis: right knee total knee arthroplasty with effusion (hemorrhage due to internal orthopedic prosthetic devices, initial encounter, T84.83XA Post-Op Diagnosis: Same Procedure: Right knee irrigation and debridement, and revision of polyethylene (one component) of total knee arthroplasty Surgeon: Chastity Echeverria MD [employer]inated Pl[employer] Assembler And Gluer: LUZ MARIA Mills Anesthesia: General EBL: 100 mL Specimens Obtained: deep synovial fluid for Gram Stain and cultures including aerobic, anaerobic, fungal, and AFB Complications: none Findings: bloody effusion Tourniquet: 300 mL, 12 minutes Implants: Right Size 3-4 11 mm Journey II BCS XLPE articular insert Indications for Procedure: The patient is an 58 year old man with total knee arthroplasty 2 weeks ago. He was seen in the office last week, with knee effusion, and Synovasure testing was performed. The white blood cell count was elevated, the polymorphonuclear leukocytes was elevated, and the alpha defensins protein was positive. Cultures were negative and remain so at this time but are not finalized, and the antimicrobial panel showed no bacterial DNA. Due to the elevated white blood cell count and possibility of deep infection I recommended irrigation and debridement with polyethylene exchange. The risks of this surgery include ongoing infection which might require excision of the total knee. Other risks include bleeding, scarring, stiffness, blood clots, or other potential surgical or anesthetic complications. All of his questions about surgery were answered and he desired to proceed. Procedure in Detail: The patient was identified in the preoperative holding area. The correct right lower extremity was marked by me. The patient was taken to the operating room where general anesthesia was used. The patient was positioned supine on the operating table. The intravenous antibodies were held until a specimen was obtained. A timeout procedure was performed. A tourniquet was applied to the right thigh. A preliminary scrub was used from the tourniquet to the toes. The limb was now prepared in sterile fashion with Betadine. Antibiotics were given. Sterile drapes were applied. An impervious stockinette was used. The operating team wore the personal exhaust ventilated hoods. The prior sutures from the alignment pins were removed. The dried skin from the blistering was elevated and debrided. The skin was prepped with Betadine using laparotomy sponges, after the dried blisters had been unroofed. An Esmarch bandage was used to exsanguinate the limb and the tourniquet was inflated to 300 mmHg. The previous incision was used, and sharp dissection was performed with a 10 blade scalpel. Benign-appearing subcutaneous bursal type fluid was encountered and was not cultured because it is benign and expected. I irrigated this later with Bactisure irrigation. Next a 10 blade scalpel was used to incise the deep capsular repair. Bloody synovial fluid was encountered and was sent in a specimen cup for aerobic, anaerobic, fungal, and AFB cultures. There is no gross evidence of infection. There was expected synovitis and scar tissue, and hematoma, all of which was excised with rongeurs. The Bactisure irrigation was used on the Jayesh InterPulse chief petroleum engineer. The polyethylene component was removed without difficulty using a Hohmann elevator. The deep capsule was irrigated, and debridement was performed with rongeurs, removing deep hematoma. After 1 L of Bactisure irrigation, 3 L of saline were irrigated using the Jayesh InterPulse chief petroleum engineer. Outer gloves were changed and a fresh drape was placed under the leg. The tourniquet was released. Bovie electrocautery was used for hemostasis. Gelfoam was also used. A periarticular injection was used with ropivacaine, morphine, epinephrine, and Toradol. (The patient's morphine allergy is nausea/vomiting.) A new size 3- 411 mm right XLPE polyethylene was inserted, and secured into place with the senior network administrator. The knee was reduced a final time. 1 g of vancomycin powder was placed in the joint. The capsule was closed with #1 PDS [id number] sutures. I then ran the capsular closure with #1 Stratafix. The subcutaneous tissues were approximated with #2-0 PDS inverted interrupted suture by me and my assistant dean of students. The skin was approximated with iban by my assistant dean of students. Acticoat and a sterile LORI dressing were applied. Needle and sponge counts were correct. There were no apparent complications. The patient returned to the recovery room in stable condition. CHASTITY ECHEVERRIA MD Sep 11, 2019 09:28
[2019-09-11] MEDS ORDERED: fentaNYL PF VIAL 100 MCG/2 ML VIAL IVP PRN (09:30)
[2019-09-11] MEDS ORDERED: PROCHLORPERAZINE 5 MG TABLET. PO PRN (09:30)
[2019-09-11] MEDS ORDERED: ZOLPIDEM 5 MG TABLET. PO PRN (09:30)
[2019-09-11] MEDS ORDERED: METOCLOPRAMIDE HCL 10 MG/2 ML VIAL. IVP PRN (09:30)
[2019-09-11] MEDS ORDERED: diphenhydrAMINE 50 MG/ML VIAL IVP PRN (09:30)
[2019-09-11] MEDS ORDERED: DEXTROSE 50% 25 GM / 50ML DISP.SYRIN. IV PRN (09:30)
[2019-09-11] MEDS ORDERED: oxyCODONE/APAP 10/325 1 TAB TABLET PO PRN (09:30)
[2019-09-11] MEDS ORDERED: 0.9 % SODIUM CHLORIDE 10 ML DISP.SYRIN. IV PRN (09:30)
[2019-09-11] MEDS ORDERED: CALCIUM CARBONATE 500 MG TAB.CHEW PO PRN (09:30)
[2019-09-11] MEDS: fentaNYL PF VIAL 100 MCG/2 ML VIAL IV PRN ×3 (09:41→13:49)
[2019-09-11] MEDS ORDERED: HYDROmorphone 2 MG/ML VIAL ONE (09:57)
[2019-09-11] MEDS: HYDROmorphone 2 MG/ML VIAL IV PRN ×2 (10:00→10:10)
[2019-09-11] MEDS ORDERED: HYDROmorphone 2 MG/ML VIAL IV ONE (10:15)
[2019-09-11] MEDS ORDERED: LIDOCAINE WITH 8.4% SOD BICARB 3 ML DISP.SYRIN. ONE (10:39)
[2019-09-11] MEDS ORDERED: LIDOCAINE WITH 8.4% SOD BICARB 3 ML DISP.SYRIN. INJ ONE ×2 (10:45→11:15)
[2019-09-11] MEDS: fentaNYL PF VIAL 100 MCG/2 ML VIAL IVP PRN ×3 (11:50→20:25)
[2019-09-11] MEDS: oxyCODONE/APAP 10/325 1 TAB TABLET PO PRN ×3 (11:58→21:16)
[2019-09-11] MEDS: ONDANSETRON PF 4 MG/2 ML VIAL. IVP SCH ×3 (12:00→23:20)
[2019-09-11] MEDS: ONDANSETRON ODT 4 MG TAB.RAPDIS. PO SCH ×3 (12:00→23:21)
--- NOTE | 2019-09-11 16:07 | RAD ---
Exam: Fluoroscopic and ultrasound guided right percutaneous inserted central venous catheter placement 09/11/2019 2:04 PM .Indication: Group Home Antibiotics Technique: Informed oral and written consent were obtained. The right upper extremity was prepped and draped using sterile barrier technique. All elements of maximal sterile barrier technique including the use of a cap, mask, sterile gown, sterile gloves, large sterile sheet, appropriate hand hygiene, and 2% chlorhexidine for cutaneous antisepsis (or acceptable alternative antiseptic per current guidelines) were followed for this procedure.. Real-time ultrasound demonstrated a patent right basilic vein which was prepped and draped in usual sterile fashion. 1% lidocaine used for local anesthesia. Using real-time ultrasound guidance the access needle percutaneously punctured the selected right basilic vein. Reference ultrasound images were saved to the medical record. A guidewire was advanced through the needle to the cavoatrial junction, and a peel-away sheath placed. The catheter was cut to length and inserted through the peel-away sheath such that its tip is at the cavoatrial junction. The wire and sheath were removed, and the catheter secured in place, and a sterile dressing was applied. Catheter was found to flush and aspirate normally. No immediate complications are identified. FLUORO TIME: 0.6 mon DOSE AREA PRODUCT: 1 Gycm2 Impression: Ultrasound and fluoroscopically guided placement of a right upper extremity PICC line.
[2019-09-11] MEDS ORDERED: CYCLOBENZAPRINE 10 MG TABLET. PO PRN (23:15)
[2019-09-11] MEDS ORDERED: clonazePAM 0.5 MG TABLET PO PRN (23:15)
[2019-09-11] MEDS ORDERED: PANTOPRAZOLE 40 MG TABLET.DR. PO SCH (23:30)
[2019-09-12] MEDS: oxyCODONE/APAP 10/325 1 TAB TABLET PO PRN ×3 (01:19→12:03)
[2019-09-12 03:00] VITALS: BP 116/83
[2019-09-12] MEDS: ONDANSETRON PF 4 MG/2 ML VIAL. IVP SCH (06:00)
[2019-09-12] MEDS ORDERED: MAGNESIUM HYDROXIDE 2,400 MG/30 ML ORAL.SUSP. PO PRN (06:00)
[2019-09-12] MEDS: ONDANSETRON ODT 4 MG TAB.RAPDIS. PO SCH (06:00)
[2019-09-12 07:00] VITALS: BP 131/85
[2019-09-12] MEDS ORDERED: ASPIRIN 325 MG TABLET PO SCH (08:00)
[2019-09-12] MEDS: MORPHINE ER 15 MG TABLET.ER PO SCH ×2 (08:53→13:34)
[2019-09-12] MEDS ORDERED: ASPIRIN ENTERIC COATED 81 MG TABLET.DR. PO SCH (09:00)
[2019-09-12] MEDS ORDERED: MULTIVITAMIN with MINERAL TABLET. PO SCH (09:00)
[2019-09-12] MEDS ORDERED: MORPHINE ER 30 MG TABLET.ER PO SCH (09:00)
[2019-09-12] MEDS ORDERED: CHOLECALCIFEROL (VITAMIN D3) 5,000 UNIT CAPSULE PO SCH (09:00)
[2019-09-12] MEDS ORDERED: ceFAZolin 2GM PREMIX 2 GM/50 ML BAG IV ONE (09:00)
[2019-09-12] MEDS ORDERED: SENNOSIDES/DOCUSATE 8.6/50MG TABLET. PO SCH (09:00)
--- NOTE | 2019-09-12 10:56 | PDOC ---
ORTHO PROGRESS NOTES Subjective Patient states that he has pain that is moderately controlled at this time. Post-op Day: 1 Procedure Irrigation and debridement of right total knee arthroplasty with poly-exchange. Vitals Vital Signs Date Time Temp Pulse Resp B/P (MAP) Pulse Ox O2 Delivery O2 Flow Rate FiO2 09/12/19 08:53 97 Room Air 09/12/19 07:00 97.6 92 18 131/85 (100) 97.6 09/11/19 17:09 2.0 Labs Laboratory Tests Test 09/11/19 07:03 09/11/19 07:10 White Blood Count 12.0 x10^3/uL (4.0-11.0) Red Blood Count 4.56 x10^6/uL (4.30-5.70) Hemoglobin 13.6 g/dL (13.0-17.5) Hematocrit 40.2 % (39.0-53.0) Mean Corpuscular Volume 88 fL (79-100) Mean Corpuscular Hemoglobin 30 pg (25-35) Mean Corpuscular Hemoglobin Concent 34 g/dL (31-37) Red Cell Distribution Width 13.1 % (11.5-14.5) Platelet Count 472 x10^3/uL (140-400) Neutrophils (%) (Auto) 73 % (31-73) Lymphocytes (%) (Auto) 16 % (24-48) Monocytes (%) (Auto) 8 % (0-9) Eosinophils (%) (Auto) 2 % (0-3) Basophils (%) (Auto) 1 % (0-3) Neutrophils # (Auto) 8.7 x10^3/uL (1.8-7.7) Lymphocytes # (Auto) 1.9 x10^3/uL (1.0-4.8) Monocytes # (Auto) 1.0 x10^3/uL (0.0-1.1) Eosinophils # (Auto) 0.2 x10^3/uL (0.0-0.7) Basophils # (Auto) 0.2 x10^3/uL (0.0-0.2) Erythrocyte Sedimentation Rate 63 (0-15) Sodium Level 141 mmol/L (136-145) Potassium Level 3.6 mmol/L (3.5-5.1) Chloride Level 103 mmol/L (98-107) Carbon Dioxide Level 27 mmol/L (21-32) Anion Gap 11 (6-14) Blood Urea Nitrogen 18 mg/dL (8-26) Creatinine 1.0 mg/dL (0.7-1.3) Estimated GFR (Cockcroft-Gault) 76.7 Glucose Level 105 mg/dL (70-99) Calcium Level 9.2 mg/dL (8.5-10.1) C-Reactive Protein, Quantitative 67.5 mg/L (0-3.3) Nasal Screen MRSA (PCR) Negative (Negative) Notes Awake alert sitting in chair at bedside. Assessment and Plan Postop day 1 status post irrigation and debridement of right total knee arthroplasty with exchange of polyethylene Motor and sensations intact distally in the right lower extremity Dressing dry and intact. Okay to DC home today with home health and IV antibiotics. Patient was instructed that there is no formal physical therapy at this time but he is to continue on his own. Also no aspirin and no anticoagulants at this time until he follows up with us in clinic in 2 weeks. IDALMIS GOMEZ APRN Sep 12, 2019 10:56
[2019-09-12 11:00] VITALS: BP 104/72
[2019-09-12] MEDS ORDERED: OXYC1TAB22 PO (11:28)
--- NOTE | 2019-09-12 11:56 | NUR ---
SW following. Discussed with RN, pt has a PICC line and will need 2gms IV Ancef q8 at home. SW faxed referral to [facility] (used to be [facility]), awaiting benefits. Rosie Rangel RN meeting with pt to discuss home health. [facility] is not able to enter hospital at this time due to visitor restrictions, SW trying to determine if home health or [facility] will teach pt how to do home infusion, once pt is home. SW will continue to follow. RN notified.
[2019-09-12] MEDS ORDERED: ONDANSETRON PF 4 MG/2 ML VIAL. IVP PRN (12:00)
[2019-09-12] MEDS ORDERED: ONDANSETRON ODT 4 MG TAB.RAPDIS. PO PRN (12:00)
[2019-09-12 15:00] VITALS: BP 121/76
[2019-09-12] MEDS ORDERED: BISACODYL 10 MG SUPP.RECT. PR PRN (16:00)
--- NOTE | 2019-09-12 16:27 | NUR ---
Patient left the building with his around [id number]. Discharge education completed by this nurse, therapy, the doctor, and Rosie prior to discharge. LORI dressing intact to right knee with no complications noted. PICC line in right upper arm intact and flushing properly with cash applications representative tubing on one of the lumens so patient can give himself his ancef Q8hr at home which he was shown how to do and taught by Rosie. Script for percocet 10/325 given to the patient. No concerns noted at discharge. Patient left with all his belongings.
[2019-09-12] MEDS ORDERED: PANTOPRAZOLE 40 MG TABLET.DR. PO SCH (21:00)
== END 2019-09-12 16:25 | disposition home health service (06) ==
LOC: SURG 05:56 → 4 NORTH 09:28
PROVIDERS: ADMIT Orthopaedic Surgery; ATTEND Orthopaedic Surgery
DX: M25.461 Effusion, right knee (principal); K21.9 Gastro-esophageal reflux disease without esophagitis; K27.9 Peptic ulcer, site unspecified, unspecified as acute or chronic, without hemorrhage or perforation; Z79.82 Long term (current) use of aspirin; Z96.659 Presence of unspecified artificial knee joint
CPT/HCPCS: 27486; 36415; 36573; 80048; 85025; 85651; 86140; 87015; 87071; 87075; 87102; 87116; 87641; 96365; 96366; 96375; 96376; 97116; 97162; A7015; C1713; C1751; C1892; G0378; G0379; J0171; J0696; J1100; J1170; J1885; J2250; J2270; J2405; J2704; J2795; J3010; J3370; J3490; J7030; J7120; 77001; J0690; A4461; C1769; C1776; Q0162

== ENCOUNTER → 2019-09-17 | Outpatient (CLI) | payer BC ==
[2019-09-12 15:00] VITALS: BP 121/76
[~2019-09-17] MED LIST changes: +OXYC1TAB22 PO
[2019-09-17 15:30] LABS: BASO % 1 % (0-3); EOS # 0.2 x10^3/uL (0.0-0.7); EOS % 3 % (0-3); HEMATOCRIT 42.2 % (39.0-53.0); HEMOGLOBIN 14.2 g/dL (13.0-17.5); LYMPH # 1.7 x10^3/uL (1.0-4.8); LYMPH % 20 % (24-48); MEAN CORPUSCULAR HEMOGLOBIN 30 pg (25-35); MEAN CORPUSCULAR HGB CONC 34 g/dL (31-37); MEAN CORPUSCULAR VOLUME 88 fL (79-100); MONO # 0.8 x10^3/uL (0.0-1.1); MONO % 10 % (0-9); NEUT # 5.8 x10^3/uL (1.8-7.7); NEUT % 67 % (31-73); PLATELET COUNT 623 x10^3/uL (140-400); RED BLOOD COUNT 4.81 x10^6/uL (4.30-5.70); RED CELL DISTRIBUTION WIDTH 13.2 % (11.5-14.5); WHITE BLOOD COUNT 8.6 x10^3/uL (4.0-11.0)
[2019-09-17 15:45] LABS: ALBUMIN 3.4 g/dL (3.4-5.0); ALBUMIN/GLOBULIN RATIO 0.7 (1.0-1.7); C-REACTIVE PROTEIN 16.8 mg/L (0-3.3); CALCIUM 9.6 mg/dL (8.5-10.1); CREATININE 0.9 mg/dL (0.7-1.3); GFR 86.7; POTASSIUM 4.5 mmol/L (3.5-5.1); TOTAL BILIRUBIN 0.2 mg/dL (0.2-1.0)
== END | disposition home or self-care (01) ==
LOC: LAB 15:01
PROVIDERS: ATTEND Orthopaedic Surgery
DX: Z47.1 Aftercare following joint replacement surgery (principal); Z79.899 Other long term (current) drug therapy; Z96.60 Presence of unspecified orthopedic joint implant
CPT/HCPCS: 36415; 80053; 85025; 85651; 86140

== ENCOUNTER → 2019-10-25 | Outpatient (CLI) | payer BC ==
--- NOTE | 2019-10-25 11:45 | RAD ---
Right upper Extremity Venous Doppler Ultrasound History: PICC removed on October 21 from basilic vein Comparison: None Procedure: Color flow, duplex, spectral analysis and 2D images are obtained with and without compression in the area of the deep and superficial venous structures of the upper , specifically the axillary, brachials, radial and ulnar deep veins and the superficial basilic and cephalic veins. Color Doppler and venous waveform analysis was also applied to the left jugular and subclavian vein. Findings: There is nonoccluding clot in the right basilic vein in the axilla and proximal and mid humerus level. There is normal duplex flow, color flow and compressibility of all remaining visualized vein segments. No evidence of deep venous thrombus is present. Impression: Positive nonocclusive clot in the right basilic vein. No DVT. Electronically signed by: Tho eDlgado III, MD (10/25/2019 11:42 AM) [id number]
== END | disposition home or self-care (01) ==
LOC: US 10:29
PROVIDERS: ATTEND Orthopaedic Surgery
DX: I82.491 Acute embolism and thrombosis of other specified deep vein of right lower extremity (principal); M79.89 Other specified soft tissue disorders
CPT/HCPCS: 93971